=== PATIENT | female | born 1960 | race Caucasian/White ===

== ENCOUNTER 2022-09-04 12:50 | Emergency (ER) | payer MEDICAID ==
[~2022-09-04] VITALS: Ht 165.1 cm; Wt 63.5 kg
--- NOTE | 2022-09-04 13:22 | NUR ---
Dr Ramon removed sutures from Pt's Lt hand, pt tolorated well.
[2022-09-04] MEDS ORDERED: CEPH500C2 PO (13:23)
[2022-09-04 13:42] VITALS: BP 129/74
--- NOTE | 2022-09-04 13:42 | NUR ---
Patient discharged to home in stable condition. Written and verbal after care instructions given. Patient verbalizes understanding of instructions. Stressed follow up or return to ER for worsening s/s.
== END 2022-09-04 13:43 | disposition home or self-care (01) ==
LOC: ER 12:50
DX: S61.216D Laceration without foreign body of right little finger without damage to nail, subsequent encounter (principal); L08.9 Local infection of the skin and subcutaneous tissue, unspecified; I10 Essential (primary) hypertension; Z79.899 Other long term (current) drug therapy; W25.XXXD Contact with sharp glass, subsequent encounter
CPT/HCPCS: A4663